=== PATIENT | female | born 1940 | race Caucasian/White ===

== ENCOUNTER → 2024-10-06 11:56 | Outpatient (CLI) | payer MEDICARE, SELFPAY ==
--- NOTE | 2024-10-06 | DI.MRI.S_ITS ---
PROCEDURE: MR SHOULDER RT WO CON INDICATIONS: pain in right shoulder TECHNIQUE: Noncontrast oblique coronal T2 fast spin echo with fat saturation, oblique sagittal T1 spin echo and T2 fast spin echo with fat saturation, axial T1 spin echo and T2 fast spin echo with fat saturation through the shoulder. COMPARISON: None. FINDINGS: Image quality: Excellent. Rotator cuff: In the supraspinatus, there is full-thickness , full width tear about the footprint, extending posteriorly to a low-grade interstitial tear at the junction of the supraspinatus and infraspinatus. Moderate tendinosis of the supraspinatus. Mild tendinosis of the infraspinatus. Trace amount of fluid tracking along the myotendinous junction of the infraspinatus. The teres minor is unremarkable. Low-grade articular sided tear of the superior fiber of the subscapularis. No muscle edema or fatty atrophy. Bones and bursae: Mild degenerative changes of the acromioclavicular joint. Type 1 acromion. No os acromiale. Moderate subacromial/subdeltoid bursitis. Multifocal mild subchondral cystic changes at the humeral head, reactive. No acute fracture. Small area of full-thickness chondral loss in the superomedial humeral head. Capsule and soft tissues: Superior labral tear, extending anteriorly to the anterior labrum. Mild tenosynovitis of the extra-articular biceps tendon, which is intact. Low-grade interstitial tear of the intra-articular biceps tendon. Small glenohumeral effusion. Moderate subscapular bursitis. 6 mm ossified intra-articular body in the subscapular bursa (series 9, image 15). IMPRESSION: 1. Full-thickness, full width tear of the supraspinatus. 2. Low-grade tear at the junction of the supraspinatus infraspinatus. 3. Low-grade tear of the superior fiber of the subscapularis and the intra-articular biceps tendon.. 4. Small area of focal chondral loss in the superomedial humeral head. 5. Moderate subscapular bursitis with 6 mm loose body. Dictated by: Cesilia Calle M.D. on 10/06/2024 at 15:20 Approved by: Cesilia Calle M.D. on 10/06/2024 at 15:31
== END ==
PROVIDERS: PCP Nurse Practitioner Family; Referring Provider Orthopaedic Surgery; Visit Provider Orthopaedic Surgery
DX: M75.121 Complete rotator cuff tear or rupture of right shoulder, not specified as traumatic (principal); S43.431A Superior glenoid labrum lesion of right shoulder, initial encounter; M75.111 Incomplete rotator cuff tear or rupture of right shoulder, not specified as traumatic; S46.111A Strain of muscle, fascia and tendon of long head of biceps, right arm, initial encounter; M75.51 Bursitis of right shoulder; M65.811 Other synovitis and tenosynovitis, right shoulder; M24.011 Loose body in right shoulder; M25.411 Effusion, right shoulder; M25.511 Pain in right shoulder
CPT/HCPCS: 73221